=== PATIENT | female | born 2000 | race Two or more races ===

== ENCOUNTER 2025-01-08 17:22 | Emergency (ER) | payer OTHER ==
[~2025-01-08] VITALS: Ht 165.1 cm; Wt 67.6 kg
[2025-01-08 19:15] LABS: HEMATOCRIT 38.3 % (36.0-45.00); HEMOGLOBIN 13.1 g/dL (12.0-15.00); MEAN CELL VOLUME 82.8 fL (80.00-100.00); MEAN CORPUSCULAR HEMOGLOBIN 28.4 pg (27.00-32.0); MEAN CORPUSCULAR HGB CONC 34.3 g/dl (32.0-36.0); PLATELET COUNT 294 K/uL (150-450); RED BLOOD COUNT 4.63 M/uL (4.00-6.00); RED CELL DISTRIBUTION WIDTH 15.7 % (11.5-14.5)
[2025-01-08 19:41] LABS: PH,URINE 6.5 (5.0-8.0); URINE APPEARANCE Clear; URINE BILIRRUBIN Negative (NEGATIVE); URINE BLOOD Large; URINE COLOR Yellow; URINE GLUCOSE Negative (NEGATIVE); URINE KETONE Negative (NEGATIVE); URINE LEUKOCYTE Negative; URINE NITRATE Negative; URINE PROTEIN Negative (NEGATIVE); URINE UROBILINOGEN 0.2 E.U./dl
[2025-01-08 19:45] LABS: URINE BACTERIA 708.6 uL (0.0-1933); URINE EPITHELIAL CELLS 25.1 uL (0.0-38.8); URINE WBC 8.2 uL (0.0-23.2)
== END 2025-01-08 21:12 | disposition home or self-care (01) ==
LOC: ER 17:25
PROVIDERS: General Practice
DX: O20.9 Hemorrhage in early pregnancy, unspecified (principal); Z3A.01 Less than 8 weeks gestation of pregnancy; Z87.09 Personal history of other diseases of the respiratory system; Z91.040 Latex allergy status; Z88.8 Allergy status to other drugs, medicaments and biological substances; Z91.018 Allergy to other foods